=== PATIENT | female | born 1990 | race Caucasian/White ===

== ENCOUNTER 2019-12-27 05:34 | Day surgery (SDC) | payer OTHER ==
[2019-12-25 15:55] LABS: BASOPHILS # (AUTO) 0.05 x10^3/uL (0-0.1); BASOPHILS % (AUTO) 1 % (0-1); EOSINOPHILS % (AUTO) 3 % (1-7); LYMPHOCYTES # (AUTO) 2.71 x10^3/uL (1-3.4); LYMPHOCYTES % (AUTO) 25 % (22-44); MD NO; MEAN CORPUSCULAR HEMOGLOBIN 30.8 pg (27.0-34.8); MEAN CORPUSCULAR HGB CONC 33.9 g/dL (32.4-35.8); MEAN CORPUSCULAR VOLUME 90.8 fL (80-100); MEAN PLATELET VOLUME 9.6 fL (7.4-10.4); MONOCYTES # (AUTO) 0.59 x10^3/uL (0.2-0.8); MONOCYTES % (AUTO) 5 % (2-9); NEUTROPHILS # (AUTO) 7.21 x10^3/uL (1.8-6.8); NEUTROPHILS % (AUTO) 66 % (42-75); PLATELET COUNT 331 x10^3/uL (130-400); RED BLOOD COUNT 4.72 x10^6/uL (3.82-5.3)
[2019-12-25 16:05] LABS: ALANINE AMINOTRANSFERASE 36 U/L (12-78); ALBUMIN 3.6 g/dL (3.4-5.0); ANION GAP 6 mmol/L (5-15); CALCIUM 8.9 mg/dL (8.5-10.1); CHLORIDE 108 mmol/L (98-107); CREATININE 0.85 mg/dL (0.55-1.02)
[2019-12-25 16:10] LABS: ALKALINE PHOSPHATASE 66 U/L (45-117); BILIRUBIN,TOTAL 0.4 mg/dL (0.2-1.0); TOTAL PROTEIN 7.9 g/dL (6.4-8.2)
[2019-12-25 16:18] LABS: INTERNATIONAL NORMALIZED RATIO 0.93 (0.93-1.1); PROTHROMBIN TIME 9.9 Seconds (9.6-11.5)
[~2019-12-27] VITALS: Ht 160 cm; Wt 117.0 kg
[~2019-12-27 05:34] MED LIST: ALBU18HF INH; CETI-158 PO
[2019-12-27] MEDS ORDERED: LACTATED RINGERS 1,000 ML IV SCH (06:00)
[2019-12-27 06:11] VITALS: BP 157/90
[2019-12-27] MEDS ORDERED: BUPIVACAINE/PF 0.5% ONE (06:59)
[2019-12-27] MEDS ORDERED: EPINEPHRINE 1 MG/ML, 1ML ONE (06:59)
[2019-12-27] MEDS ORDERED: MIDAZOLAM 1 MG/ML, 2ML ONE (07:08)
[2019-12-27] MEDS ORDERED: FENTANYL PF 250 MCG/5ML ONE (07:08)
[2019-12-27] MEDS ORDERED: SUCCINYLCHOLINE 20 MG/ML, 10ML ONE (07:23)
[2019-12-27] MEDS ORDERED: CEFAZOLIN 1,000 MG ONE (07:23)
[2019-12-27] MEDS ORDERED: ONDANSETRON 2MG/ML, 2ML ONE (07:23)
[2019-12-27] MEDS ORDERED: ROCURONIUM 10 MG/ML,10ML ONE (07:23)
[2019-12-27] MEDS ORDERED: PROPOFOL 10 MG/ML, 20ML ONE (07:23)
[2019-12-27] MEDS ORDERED: DEXAMETHASONE 4 MG/ML, 1ML ONE (07:23)
[2019-12-27] MEDS ORDERED: hydrALAzine 20 MG/ML, 1ML IV PRN (08:00)
[2019-12-27] MEDS ORDERED: METOCLOPRAMIDE 5 MG/ML, 2ML IV PRN (08:00)
[2019-12-27] MEDS ORDERED: ALBUTEROL SULFATE 2.5 MG/3 ML NPPB PRN (08:00)
[2019-12-27] MEDS ORDERED: ONDANSETRON 2MG/ML, 2ML IVPush PRN (08:00)
[2019-12-27] MEDS ORDERED: HYDROmorphone 1 MG/ML, 1ML INJ IV PRN (08:00)
[2019-12-27] MEDS ORDERED: MEPERIDINE/PF 25MG/0.5ML IVPush PRN (08:00)
[2019-12-27] MEDS ORDERED: LABETALOL 5MG/ML, 20ML IV PRN (08:00)
[2019-12-27] MEDS ORDERED: OXYcodone 5 MG/5 ML ORAL.SOL UDC PO PRN (08:00)
[2019-12-27] MEDS ORDERED: KETOROLAC 30 MG/1 ML IV PRN (08:00)
[2019-12-27] MEDS ORDERED: DIAZEPAM 5 MG/ML, 2ML IV PRN ×2 (08:00)
[2019-12-27] MEDS ORDERED: PROMETHAZINE 25 MG/ML, 1ML IV PRN (08:00)
[2019-12-27] MEDS ORDERED: FENTANYL PF 100 MCG/2ML ONE (08:47)
[2019-12-27] MEDS: FENTANYL PF 100 MCG/2ML IV PRN ×2 (08:48→09:05)
[2019-12-27] MEDS ORDERED: OXYcodone 5 MG/5 ML ORAL.SOL UDC ONE (08:54)
[2019-12-27] MEDS ORDERED: SCOPOLAMINE 1MG PATCH TD ONE ×2 (09:49→10:00)
[2019-12-27] MEDS ORDERED: ONDANSETRON 2MG/ML, 2ML IVPush ONE (10:00)
== END 2019-12-27 11:10 | disposition home or self-care (01) ==
LOC: OUT 05:34
PROVIDERS: ATTEND Surgery
DX: K80.12 Calculus of gallbladder with acute and chronic cholecystitis without obstruction (principal); E66.01 Morbid (severe) obesity due to excess calories; K76.0 Fatty (change of) liver, not elsewhere classified; J45.909 Unspecified asthma, uncomplicated; Z68.42 Body mass index [BMI] 45.0-49.9, adult; Z79.899 Other long term (current) drug therapy; Z88.8 Allergy status to other drugs, medicaments and biological substances; Z91.013 Allergy to seafood; Z98.890 Other specified postprocedural states
CPT/HCPCS: 36415; 47562; 80053; 83690; 84703; 85025; 85610; 88304; J0171; J0330; J0690; J1100; J2250; J2405; J2704; J3010; J7120

== ENCOUNTER 2021-04-18 10:04 | Inpatient (IN) | payer OTHER ==
[~2021-04-18] VITALS: Ht 160 cm; Wt 138.0 kg
[2021-04-18] MEDS ORDERED: ONDANSETRON 2MG/ML, 2ML IVPush PRN (10:30)
[2021-04-18] MEDS ORDERED: MISOPROSTOL 25 MCG TABLET PO PRN (10:30)
[2021-04-18] MEDS ORDERED: OXYTOCIN 30U/ 0.9% NaCL 500ML 500 ML IV PRN (10:30)
[2021-04-18] MEDS ORDERED: OXYTOCIN 30U/ 0.9% NaCL 500ML 500 ML IV ONE (10:30)
[2021-04-18] MEDS ORDERED: TERBUTALINE 1 MG/ML, 1ML SQ PRN (10:30)
[2021-04-18] MEDS ORDERED: SODIUM CHLORIDE FLUSH 10ML SYR IVF PRN (10:30)
[2021-04-18] MEDS ORDERED: TERBUTALINE 1 MG/ML, 1ML IVPush PRN (10:30)
[2021-04-18] MEDS ORDERED: CALCIUM CARBONATE 500 MG TAB.CHEW PO PRN (10:30)
[2021-04-18] MEDS ORDERED: METOCLOPRAMIDE 5 MG/ML, 2ML IVPush PRN (10:30)
[2021-04-18] MEDS ORDERED: ALUMINUM/MAG/SIMETHICONE 30 ML UDC PO PRN (10:30)
[2021-04-18] MEDS ORDERED: SODIUM CITRATE/CITRIC ACID 30 ML UDC PO PRN (10:30)
[2021-04-18] MEDS ORDERED: MISOPROSTOL 25 MCG TABLET VG PRN (10:30)
[2021-04-18] MEDS ORDERED: MISOPROSTOL 200 MCG TABLET ONE (10:44)
[2021-04-18] MEDS ORDERED: MISOPROSTOL 25 MCG TABLET ONE (10:44)
[2021-04-18] MEDS ORDERED: OXYTOCIN 30U/ 0.9% NaCL 500ML 500 ML ONE (10:44)
[2021-04-18] MEDS ORDERED: LIDOCAINE 1%, 20ML ONE (10:44)
[2021-04-18] MEDS ORDERED: NEWBORN KIT ONE (10:44)
[2021-04-18 11:13] LABS: BASOPHILS % (AUTO) 1 % (0-1); EOSINOPHILS % (AUTO) 2 % (1-7); LYMPHOCYTES % (AUTO) 16 % (22-44); MEAN CORPUSCULAR HEMOGLOBIN 29.1 pg (27.0-34.8); MEAN CORPUSCULAR HGB CONC 33.6 g/dL (32.4-35.8); MEAN PLATELET VOLUME 10.1 fL (7.4-10.4); MONOCYTES % (AUTO) 5 % (2-9); NEUTROPHILS % (AUTO) 77 % (42-75); PLATELET COUNT 197 x10^3/uL (130-400); RED BLOOD COUNT 3.81 x10^6/uL (3.82-5.3); RED CELL DISTRIBUTION WIDTH 14.2 % (9.6-15.2)
[2021-04-18] MEDS: LACTATED RINGERS 1,000 ML IV SCH ×2 (11:15→18:47)
[2021-04-18 12:12] LABS: ALANINE AMINOTRANSFERASE 17 U/L (12-78); ALBUMIN 2.2 g/dL (3.4-5.0); ANION GAP 10 mmol/L (5-15); CALCIUM 8.7 mg/dL (8.5-10.1); CHLORIDE 111 mmol/L (98-107)
[2021-04-18 12:13] LABS: CREATININE,URINE RANDOM 40.9 mg/dL
[2021-04-18 12:15] LABS: ALKALINE PHOSPHATASE 98 U/L (45-117); BILIRUBIN,TOTAL 0.2 mg/dL (0.2-1.0); CREATININE 0.89 mg/dL (0.55-1.02); TOTAL PROTEIN 5.9 g/dL (6.4-8.2)
[2021-04-18 12:16] LABS: BILIRUBIN, DIRECT < 0.1 mg/dL (0.1-0.2)
[2021-04-18] MEDS ORDERED: LABETALOL 5MG/ML, 20ML ONE (16:22)
[2021-04-18] MEDS ORDERED: LABETALOL 5MG/ML, 20ML IVPush PRN ×3 (16:30)
[2021-04-18] MEDS ORDERED: hydrALAzine 20 MG/ML, 1ML IVPush ONE (16:30)
[2021-04-19] MEDS: CETIRIZINE 10 MG TABLET PO SCH (07:43)
[2021-04-19] MEDS: LACTATED RINGERS 1,000 ML IV SCH ×2 (09:50→18:15)
[2021-04-19] MEDS: FENTANYL PF 100 MCG/2ML IVPush PRN ×3 (21:44→23:34)
[2021-04-19] MEDS ORDERED: FENTANYL/BUPIV./NS/PF 250 ML EPIDCONT ONE (23:53)
[2021-04-19] MEDS ORDERED: BUPIVACAINE 0.25% ONE (23:53)
[2021-04-20] MEDS ORDERED: LACTATED RINGERS 1,000 ML IV SCH (00:30)
[2021-04-20] MEDS ORDERED: FENTANYL/BUPIV./NS/PF 250 ML EPIDCONT SCH (00:30)
[2021-04-20] MEDS ORDERED: EPHEDRINE 50 MG/ML, 1ML IVPush PRN (00:30)
[2021-04-20] MEDS ORDERED: LACTATED RINGERS 1,000 ML IVBOLUS PRN (00:30)
[2021-04-20] MEDS ORDERED: AMPICILLIN 2 GM in SODIUM CHLORIDE 0.9% 100 ML IV SCH (08:00)
[2021-04-20] MEDS: CETIRIZINE 10 MG TABLET PO SCH (09:00)
[2021-04-20] MEDS ORDERED: ACETAMINOPHEN 325 MG TABLET ONE (09:22)
[2021-04-20] MEDS ORDERED: ACETAMINOPHEN 650 MG SUPP PR PRN (09:30)
[2021-04-20] MEDS ORDERED: IBUPROFEN 600 MG TABLET ONE (11:04)
[2021-04-20] MEDS: OXYTOCIN 30U/ 0.9% NaCL 500ML 500 ML IV SCH ×2 (11:30→22:30)
[2021-04-20] MEDS: IBUPROFEN 600 MG TABLET PO PRN ×2 (12:00→18:03)
[2021-04-20] MEDS ORDERED: SIMETHICONE 80 MG CHEW TAB PO PRN (12:30)
[2021-04-20] MEDS ORDERED: ONDANSETRON 2MG/ML, 2ML IV PRN (12:30)
[2021-04-20] MEDS ORDERED: ACETAMINOPHEN 325 MG TABLET PO PRN (12:30)
[2021-04-20 13:30] VITALS: BP 123/78
[2021-04-20] MEDS ORDERED: MISOPROSTOL 200 MCG TABLET PR PRN (13:30)
[2021-04-20 17:30] VITALS: BP 118/76
[2021-04-20] MEDS: PRENATAL VIT/IRON/FA 1 EACH TABLET PO SCH (17:36)
[2021-04-20 18:37] LABS: BASOPHILS % (AUTO) 0 % (0-1); EOSINOPHILS % (AUTO) 0 % (1-7); LYMPHOCYTES % (AUTO) 6 % (22-44); MEAN CORPUSCULAR HEMOGLOBIN 28.8 pg (27.0-34.8); MEAN CORPUSCULAR HGB CONC 33.1 g/dL (32.4-35.8); MEAN PLATELET VOLUME 9.9 fL (7.4-10.4); MONOCYTES % (AUTO) 5 % (2-9); NEUTROPHILS % (AUTO) 88 % (42-75); PLATELET COUNT 174 x10^3/uL (130-400); RED BLOOD COUNT 3.07 x10^6/uL (3.82-5.3); RED CELL DISTRIBUTION WIDTH 14.3 % (9.6-15.2)
[2021-04-20 19:45] VITALS: BP 120/69
[2021-04-20] MEDS: DOCUSATE 100 MG CAPSULE PO PRN (19:56)
[2021-04-20] MEDS: ACETAMINOPHEN 325 MG TABLET PO PRN (21:40)
[2021-04-21] MEDS: IBUPROFEN 600 MG TABLET PO PRN (00:27)
[2021-04-21 00:33] VITALS: BP 114/77
[2021-04-21 05:15] VITALS: BP 123/77
[2021-04-21 07:47] VITALS: BP 110/71
[2021-04-21] MEDS: DOCUSATE 100 MG CAPSULE PO PRN (08:25)
[2021-04-21] MEDS: CETIRIZINE 10 MG TABLET PO SCH (08:25)
[2021-04-21] MEDS: PRENATAL VIT/IRON/FA 1 EACH TABLET PO SCH (08:25)
[2021-04-21] MEDS: ACETAMINOPHEN 325 MG TABLET PO PRN (10:37)
== END 2021-04-21 15:18 | disposition home or self-care (01) | DRG 807 ==
LOC: LDIP 10:04 → 2NW 04-20 12:59
PROVIDERS: ADMIT Obstetrics & Gynecology; ATTEND Obstetrics & Gynecology
PROC: 10E0XZZ Delivery of Products of Conception, External Approach (ICD-10-PCS; principal; 2021-04-20)
PROC: 10907ZC Drainage of Amniotic Fluid, Therapeutic from Products of Conception, Via Natural or Artificial Opening (ICD-10-PCS; 2021-04-20)
PROC: 0HQ9XZZ Repair Perineum Skin, External Approach (ICD-10-PCS; 2021-04-20)
PROC: 3E033VJ Introduction of Other Hormone into Peripheral Vein, Percutaneous Approach (ICD-10-PCS; 2021-04-20)
PROC: 3E0R3BZ Introduction of Anesthetic Agent into Spinal Canal, Percutaneous Approach (ICD-10-PCS; 2021-04-20)
PROC: 00HU33Z Insertion of Infusion Device into Spinal Canal, Percutaneous Approach (ICD-10-PCS; 2021-04-20)
DX: O24.420 Gestational diabetes mellitus in childbirth, diet controlled (principal); Z37.0 Single live birth; O99.214 Obesity complicating childbirth; O99.52 Diseases of the respiratory system complicating childbirth; Z3A.40 40 weeks gestation of pregnancy; Z79.899 Other long term (current) drug therapy; E66.9 Obesity, unspecified; J45.909 Unspecified asthma, uncomplicated; O70.0 First degree perineal laceration during delivery; O77.0 Labor and delivery complicated by meconium in amniotic fluid; Z20.822 Contact with and (suspected) exposure to COVID-19
CPT/HCPCS: 36415; 80053; 82248; 82570; 82962; 84156; 84550; 85025; 86592; 86850; 86900; 87635; G0378; J0290; J2405; J3010; J2590; J7120